=== PATIENT | female | born 1995 | race Caucasian/White ===

== ENCOUNTER → 2018-06-15 20:37 | Outpatient (CLI) | payer SELFPAY | PROVIDERS: Referring Provider Obstetrics & Gynecology; Visit Provider Obstetrics & Gynecology | DX: Z12.4 Encounter for screening for malignant neoplasm of cervix (principal) | CPT/HCPCS: 88175; G0145 ==

== ENCOUNTER → 2019-08-24 17:06 | Outpatient (CLI) | payer MEDICAID, SELFPAY ==
[2019-08-24 18:01] LABS: Absolute Lymphocyte Count 1.31 X10^3/uL (0.83-4.51); Absolute Neutrophil Count 8.4 X10^3/uL (2.0-7.7); Basophil# 0.04 X10^3/uL; Basophil% 0.4 % (0-1); Eosinophil# 0.05 X10^3/uL; Eosinophils% 0.5 % (0-5); Hematocrit 37.3 % (37-47); Hemoglobin 11.9 g/dL (12.0-15.0); Lymphocyte # 1.31 X10^3/ul (4.0); Lymphocyte % 12.4 % (19-41); Mean Corp Hgb Conc 31.9 g/dL (32-36); Mean Corpuscular Hgb 28.5 pg (27.0-32.0); Mean Corpuscular Volume 89.2 fL (81-99); Mean Platelet Vol. 8.9 fl (6.2-12.0); Monocyte# 0.74 X10^3/uL; NRBC Flagged by Analyzer 0 % (0-5); Neutrophil # 8.38 X10^3/uL (2.7-7.7); Platelet Count 422 K/mm3 (150-450); RBC Distribution Width CV 16.6 % (11.6-14.6); RBC Distribution Width SD 53.7 fl (35.1-43.9); Red Blood Count 4.18 M/mm3 (4.2-5.4); White Blood Count 10.6 K/mm3 (4.4-11.0)
[2019-08-24 18:11] LABS: Erythrocyte Sedimentation Rate 30 mm/hr (0-20)
[2019-08-24 18:42] LABS: AST(SGOT) 14 U/L (15-37); Alanine Aminotransfer ALT/SGPT 25 U/L (13-56); Albumin, Serum 3.6 g/dL (3.2-5.0); Alkaline Phosphatase 92 U/L (45-117); Bilirubin, Direct 0.11 mg/dL (0.00-0.30); Creatinine, Serum 0.83 mg/dL (0.55-1.02); EST Glomerular Filtration Rate 89 mL/min (>60); Est Glom Filt Rate - Afr Amer 108 mL/min (>60); Protein, Total 7.6 g/dL (6.4-8.2)
== END ==
PROVIDERS: Referring Provider Internal Medicine Rheumatology; Visit Provider Internal Medicine Rheumatology
DX: M05.9 Rheumatoid arthritis with rheumatoid factor, unspecified (principal); R79.82 Elevated C-reactive protein (CRP); Z79.899 Other long term (current) drug therapy
CPT/HCPCS: 36415; 80076; 82565; 85025; 85652; 86140

== ENCOUNTER 2019-09-07 13:30 | Emergency (ER) | payer MEDICAID, SELFPAY ==
[2019-09-07 13:31] VITALS: BP 153/107; PULSE 96; RESP 18; TEMP 37.3; O2SAT 97; BMI 27.4
--- NOTE | 2019-09-07 13:50 | EKG12_ITS ---
Test Reason : Blood Pressure : / mmHG Vent. Rate : 089 BPM Atrial Rate : 089 BPM P-R Int : 140 ms QRS Dur : 080 ms QT Int : 354 ms P-R-T Axes : 019 082 037 degrees QTc Int : 430 ms Normal sinus rhythm Normal ECG Confirmed by MARTHA TAN, KATHRYN ([id number]), editorial assistant ARIANNA SANDERS ([id number]) on 09/08/2019 2:25:38 PM Referred By: No Primary Care Physician Confirmed By:KATHRYN THOMAS MD
--- NOTE | 2019-09-07 13:54 | ECHOD_ITS ---
Reason For Study: PERICARDIAL EFFUSION Procedure This was a 2D Doppler, Color Flow transthoracic echocardiogram. Exam performed portable in ED. Left Ventricle Normal LV size. The estimated ejection fraction is 60 %. No evidence for diastolic dysfunction. No regional wall motion abnormalities noted. Right Ventricle Normal RV size. Normal systolic function. Atria Normal left atrium. Normal right atrium. Normal atrial septum. Mitral Valve There is no mitral valve stenosis. No mitral valve insufficiency. Tricuspid Valve There is no tricuspid stenosis. Trivial tricuspid valve insufficiency. Pulmonary artery systolic pressure is 20 mmHg. Aortic Valve Trisinus/trileaflet aortic valve. There is no aortic stenosis. No aortic valve insufficiency. Pulmonic Valve There is no pulmonic valvular stenosis. No pulmonic valve insufficiency. Great Vessels Normal aortic root. Pericardium/Pleural No pericardial effusion. MMode/2D Measurements & Calculations RVDd: 3.2 cm Ao root diam: 2.9 cm LAV(MOD-bp): 28.8 ml LAV(MOD-bp) Indexed: 15.5 ml/m2 LAV(MOD-sp2): 24.3 ml LAV(MOD-sp4): 33.4 ml LA dimension(2D): 3.5 cm LA A4 area: 13.9 cm2 RA A4 area: 12.3 cm2 Time Measurements MV dec time: 0.25 sec Doppler Measurements & Calculations MV E max gurwinder: 84.5 cm/sec Lat Peak E' Gurwinder: 20.5 cm/sec Med Peak E' Gurwinder: 10.1 cm/sec MV A max gurwinder: 54.7 cm/sec E/E' lat: 4.1 E/E' med: 8.3 MV E/A: 1.5 Ao V2 max: 124.4 cm/sec LV V1 max: 88.4 cm/sec PA V2 max: 87.5 cm/sec Ao max P.2 mmHg LV V1 max P.1 mmHg TR max gurwinder: 203.0 cm/sec TR max P.5 mmHg Interpretation Summary The estimated ejection fraction is 60 %. No evidence for diastolic dysfunction. Trivial tricuspid valve insufficiency. No pericardial effusion. Ordering Physician: Babar Sunshine Referring Physician: Care Physician, No Primary Performed By: Guerline Crane, TRUDY, RVT
--- NOTE | 2019-09-07 13:56 | RAD_ITS ---
STUDY: X-RAY CHEST REASON FOR EXAM: Female, 24 years old. CHEST PAIN, SOB TECHNIQUE: Single AP portable view of the chest. COMPARISON: None. FINDINGS: EKG electrodes are seen. The lungs are clear and expanded. There is no demonstrated pleural abnormality. Normal size heart. Normal mediastinum and gab. Normal visualized pulmonary arteries. Normal visualized aortic arch and descending thoracic aorta. Normal visualized thoracic spine. Normal visualized ribs, clavicles, and shoulders. There is no demonstrated abnormality of the visualized soft tissue structures of the upper abdomen. RAD/Chest 1 View (Portable) IMPRESSION: Normal x-ray examination of the chest. Electronically Signed: Owen Vargas, at 14:10 EST , Service support ,
--- NOTE | 2019-09-07 14:05 | ED.RN ---
NO OLD EKG
[2019-09-07 14:07] LABS: Erythrocyte Sedimentation Rate 19 mm/hr (0-20)
[2019-09-07 14:09] LABS: Absolute Lymphocyte Count 2.45 X10^3/uL (0.83-4.51); Absolute Neutrophil Count 6.2 X10^3/uL (2.0-7.7); Basophil# 0.06 X10^3/uL; Basophil% 0.6 % (0-1); Eosinophil# 0.11 X10^3/uL; Eosinophils% 1.2 % (0-5); Hematocrit 42.5 % (37-47); Hemoglobin 13.3 g/dL (12.0-15.0); Lymphocyte # 2.45 X10^3/ul (4.0); Lymphocyte % 25.8 % (19-41); Mean Corp Hgb Conc 31.3 g/dL (32-36); Mean Corpuscular Hgb 27.8 pg (27.0-32.0); Mean Corpuscular Volume 88.9 fL (81-99); Mean Platelet Vol. 8.9 fl (6.2-12.0); Monocyte# 0.66 X10^3/uL; Monocyte% 6.9 % (0-10); NRBC Flagged by Analyzer 0 % (0-5); Neutrophil # 6.15 X10^3/uL (2.7-7.7); Neutrophil % 64.8 % (47-70); Platelet Count 495 K/mm3 (150-450); RBC Distribution Width CV 15.8 % (11.6-14.6); RBC Distribution Width SD 51.6 fl (35.1-43.9); Red Blood Count 4.78 M/mm3 (4.2-5.4); White Blood Count 9.5 K/mm3 (4.4-11.0)
[2019-09-07] MEDS: 0.9% Normal Saline 1,000 ML 150 ML IV (14:12)
[2019-09-07 14:19] LABS: Anion Gap 5 (5-15); BUN 11 mg/dL (7-18); BUN/Creat Ratio 13.3 RATIO (10-20); Calcium,Total 9.5 mg/dL (8.5-10.1); Chloride 105 mmol/L (98-107); Creatinine, Serum 0.83 mg/dL (0.55-1.02); EST Glomerular Filtration Rate 89 mL/min (>60); Est Glom Filt Rate - Afr Amer 108 mL/min (>60); Glucose 94 mg/dL (74-106); Potassium 3.5 mmol/L (3.5-5.1); Sodium Level 138 mmol/L (136-145)
[2019-09-07 14:20] LABS: Internal QC Validated? YES +Cl - CLEAR BKGD; Pregnancy, Serum, hCG Quali. NEGATIVE Negative
[2019-09-07 15:14] LABS: D-Dimer Quantitative (DVT/PE) 4.03 FEU/ug/m (0.27-0.49)
--- NOTE | 2019-09-07 15:15 | CT_ITS ---
STUDY: CTA CHEST REASON FOR EXAM: Female, 24 years old. ELEVATED D-DIMER, CP, LEFT ARM NUMBNESS X MONTHS RADIATION DOSAGE (If Supplied By Facility): CTDIvol = ( 7.27 ) mGy, DLP = ( 295.08 ) mGycm TECHNIQUE: The examination was performed with the intravenous administration of IV 100mL Isovue-300. Post-processing of the angiographic images was performed, with multiplanar reformation and 3D reconstruction. Individualized dose optimization techniques were used for this CT. COMPARISON: Comparison is made with prior chest radiograph done earlier today. FINDINGS: Normal enhancement of the main pulmonary artery and right and left pulmonary arteries. Normal enhancement of the bilateral peripheral pulmonary arteries. There is no demonstrated pulmonary embolism. Normal thoracic aorta and visualized great vessels. There is no demonstrated aortic dissection. Normal heart and pericardium. Normal mediastinum. Normal hilar regions. Normal visualized trachea and bronchi. The lungs are well expanded. Normal pulmonary parenchyma. Normal pleura. Normal chest wall structures. Normal osseous structures. Small hiatal hernia. CT/CTA Chest W/WO Contrast IMPRESSION: Normal CTA chest examination, without a demonstrated pulmonary embolism or arterial dissection. Electronically Signed: Owen Vargas, at 15:49 EST , Service support ,
[2019-09-07 15:45] VITALS: BP 129/88; PULSE 76; RESP 17; O2SAT 98
--- NOTE | 2019-09-07 16:24 | ED.VISSUMM ---
- ER Visit Summary Date of Service: 09/07/19 Chief Complaint: Chest pain History of Present Illness: The patient is a 24 F who does not have a primary care physician. Her band manager is Dr. Hernandez. She reports that she was diagnosed with a pericardial effusion in June 2019 at [facility]. This did not require drainage. She states that she has symptoms that are similar to that that began yesterday. Patient complains of a dull left-sided chest pain that is 8 out of 10 at worst and 5-10 currently. It is worsened by laying flat and relieved by sitting up. She denies any associated nausea, vomiting, diaphoresis, shortness of breath. She is 2 months . Physical Examination: Vitals: Stable. Afebrile. General: Well-nourished and well-developed. Head: Normocephalic atraumatic. Neck: Supple, no lymphadenopathy. No JVD. Nontender. Cardiovascular: Regular rate and rhythm. No murmurs. Respiratory: No respiratory distress. Clear to auscultation bilaterally. Abdominal: Soft, nontender, nondistended, normal bowel sounds. No guarding, rebound, or peritoneal signs. Back: Nontender. Extremities: Nontender, no edema. Skin: Normal color, no rash. Neurologic: Alert and oriented ?3. Cranial nerves II through XII are intact. Normal strength and sensation. Psych: Normal affect. Test Results: EKG is sinus at 89 with no acute changes. She has normal voltage. There is no electrical alternans. Troponin is negative. D-dimer is elevated at 4.03. test is negative. Chem-7 is normal. CBC shows platelets of 495. Sed rate is normal. Echocardiogram shows an ejection fraction of 60% with no pericardial effusion. Clinical Impression(s) from Imaging Studies Chest X-Ray 09/07/19 13:56 IMPRESSION: Normal x-ray examination of the chest. Electronically Signed: Owen Vargas, at 14:10 EST , Service support , CTA of the chest shows no PE or dissection. Emergency Department Course and Treatment: Patient rested comfortably without complaint. She refused pain or nausea medications. Treatment Plan: Patient be discharged with symptomatic care. Instructed to follow-up with Dr. Giles in 3 to 5 days if not improving. Return to the emergency department for any worsening symptoms. Disposition: To home in improved and stable condition. Impression: 1. Chest pain, uncertain cause. This note was generated with [employer] dictation software. It may contain incorrect words, spelling, and punctuation that were not noted in review of the chart prior to signing ED Disposition - Plan for ED Patient: Instructions: CHEST PAIN, Uncertain Cause Referrals: Alex Giles, [STAFF PHYSICIAN] - 3-5 Days if not improving
== END 2019-09-07 17:00 | disposition home or self-care (01) ==
LOC: ED 13:54
PROVIDERS: Emergency Provider Emergency Medicine
DX: R07.9 Chest pain, unspecified (principal); M06.9 Rheumatoid arthritis, unspecified
CPT/HCPCS: 71045; 71275; 80048; 84484; 84703; 85025; 85379; 85652; 93005; 93306; 96360; 96361; 99284; J7030; Q9967; A4216

== ENCOUNTER 2020-02-08 10:26 | Outpatient (RCR) | payer SELFPAY ==
[2020-02-08 11:02] LABS: Erythrocyte Sedimentation Rate 17 mm/hr (0-20)
[2020-02-08 11:04] LABS: Absolute Lymphocyte Count 1.41 X10^3/uL (0.83-4.51); Absolute Neutrophil Count 5.3 X10^3/uL (2.0-7.7); Basophil# 0.04 X10^3/uL; Basophil% 0.5 % (0-1); Eosinophils% 1.3 % (0-5); Hematocrit 39.6 % (37-47); Lymphocyte # 1.41 X10^3/ul (4.0); Lymphocyte % 18.8 % (19-41); Mean Corp Hgb Conc 32.8 g/dL (32-36); Mean Corpuscular Hgb 29.7 pg (27.0-32.0); Mean Corpuscular Volume 90.6 fL (81-99); Mean Platelet Vol. 9.2 fl (6.2-12.0); Monocyte# 0.67 X10^3/uL; Monocyte% 8.9 % (0-10); NRBC Flagged by Analyzer 0 % (0-5); Neutrophil # 5.27 X10^3/uL (2.7-7.7); Neutrophil % 70.2 % (47-70); Platelet Count 415 K/mm3 (150-450); RBC Distribution Width CV 14.4 % (11.6-14.6); RBC Distribution Width SD 46.7 fl (35.1-43.9); Red Blood Count 4.37 M/mm3 (4.2-5.4); White Blood Count 7.5 K/mm3 (4.4-11.0)
[2020-02-08 11:29] LABS: AST(SGOT) 17 U/L (15-37); Alanine Aminotransfer ALT/SGPT 25 U/L (13-56); Albumin, Serum 4.3 g/dL (3.2-5.0); Alkaline Phosphatase 82 U/L (45-117); Bilirubin, Direct 0.16 mg/dL (0.00-0.30); CRP 7.07 mg/L (0.0-3.0); Creatinine, Serum 0.82 mg/dL (0.55-1.02); EST Glomerular Filtration Rate 90 mL/min (>60); Est Glom Filt Rate - Afr Amer 109 mL/min (>60); Globulin 3.7 g/dL (2.2-4.2)
== END 2020-02-08 18:00 | disposition home or self-care (01) ==
LOC: LAB 10:26
PROVIDERS: Referring Provider Internal Medicine Rheumatology; Visit Provider Internal Medicine Rheumatology
DX: M05.9 Rheumatoid arthritis with rheumatoid factor, unspecified (principal); Z79.899 Other long term (current) drug therapy
CPT/HCPCS: 36415; 80076; 82565; 85025; 85652; 86140

== ENCOUNTER → 2020-02-14 13:22 | Outpatient (CLI) | payer SELFPAY ==
[2020-02-14 13:32] LABS: Bacteria 0 SEEN /hpf (None Seen); Mucous, Urine 0 SEEN /hpf (<or=2+); Red Blood Cells-Urine 0 SEEN /hpf (0-5); White Blood Cells 0 SEEN /hpf (0-5)
[2020-02-14 14:23] LABS: Color, Urine Yellow (Yellow); Glucose, Dipstick Normal (Normal); Ketone-Dipstick Negative (Negative); Leukocyte Esterase-Dipstick Negative /ul (Negative); Nitrite-Dipstick Negative (Negative); Occult Blood-Urine Negative /ul (Negative); Protein-Dipstick Negative (Negative); Urine Bilirubin Dipstick Negative (Negative); Urine Clarity Sl. Cloudy (Clear); Urine Urobilinogen Normal (Normal)
[2020-02-14 14:28] LABS: Squamous Epithelial Cells - UA 0-5 SEEN /hpf (5-10)
[2020-02-14 14:37] LABS: BNP,B-Type NATRIURETIC PEPTIDE 16.1 pg/mL (0-100)
[2020-02-14 14:39] LABS: CRP 4.44 mg/L (0.0-3.0)
[2020-02-14 14:49] LABS: Erythrocyte Sedimentation Rate 30 mm/hr (0-20)
[2020-02-16 14:57] LABS: Complement C3 132 mg/dL (82-167)
[2020-02-17 14:07] LABS: RNP Ab <0.2 AI (0.0-0.9); Smith Ab <0.2 AI (0.0-0.9)
[2020-02-17 14:40] LABS: Anti-dsDNA Ab <1 IU/mL (0-9)
== END ==
PROVIDERS: Referring Provider Internal Medicine Rheumatology; Visit Provider Internal Medicine Rheumatology
DX: R76.0 Raised antibody titer (principal); I32 Pericarditis in diseases classified elsewhere; R79.89 Other specified abnormal findings of blood chemistry
CPT/HCPCS: 36415; 81001; 83880; 85652; 86140; 86160; 86225; 86235

== ENCOUNTER → 2020-08-29 12:59 | Outpatient (CLI) | payer OTHER, SELFPAY ==
[2020-08-29 14:48] LABS: Hepatitis B Surface Antibody Reactive; Hepatitis B Surface Antigen Non-Reactive (Nonreactive); Hepatitis C Antibody Non-Reactive (Nonreactive)
[2020-09-02 16:08] LABS: QNTFERON TB Mitogen Value > 10.00 IU/mL (.); QNTFERON TB Nil Value 0.08 IU/mL (.); QNTFERON TB1+ Ag Value 0.07 IU/mL (.); QNTFERON TB2+ Ag Value 0.06 IU/mL (.)
[2020-09-02 17:31] LABS: Hepatitis B Core Ab Total Negative (Negative); QNTIFERON TB Positive Criteria Negative (Negative)
== END ==
PROVIDERS: Referring Provider Internal Medicine Rheumatology; Visit Provider Internal Medicine Rheumatology
DX: Z11.59 Encounter for screening for other viral diseases (principal); Z79.899 Other long term (current) drug therapy
CPT/HCPCS: 36415; 86480; 86704; 86706; 86803; 87340

== ENCOUNTER 2020-10-23 11:05 | Outpatient (RCR) | payer OTHER, SELFPAY ==
[2020-10-23 11:44] LABS: Erythrocyte Sedimentation Rate 15 mm/hr (0-30)
[2020-10-23 11:49] LABS: Absolute Lymphocyte Count 1.84 X10^3/uL (0.83-4.51); Absolute Neutrophil Count 4.3 X10^3/uL (2.0-7.7); Basophil# 0.04 X10^3/uL; Basophil% 0.6 % (0-1); Eosinophil# 0.09 X10^3/uL; Eosinophils% 1.3 % (0-5); Hematocrit 41.5 % (37-47); Hemoglobin 13.7 g/dL (12.0-15.0); Lymphocyte # 1.84 X10^3/ul (4.0); Lymphocyte % 26.6 % (19-41); Mean Corpuscular Hgb 30.3 pg (27.0-32.0); Mean Corpuscular Volume 91.8 fL (81-99); Mean Platelet Vol. 9.4 fl (6.2-12.0); Monocyte# 0.58 X10^3/uL; Monocyte% 8.4 % (0-10); NRBC Flagged by Analyzer 0 % (0-5); Neutrophil # 4.34 X10^3/uL (2.7-7.7); Neutrophil % 62.7 % (47-70); Platelet Count 441 K/mm3 (150-450); RBC Distribution Width CV 13.7 % (11.6-14.6); RBC Distribution Width SD 46.2 fl (35.1-43.9); Red Blood Count 4.52 M/mm3 (4.2-5.4); White Blood Count 6.9 K/mm3 (4.4-11.0)
[2020-10-23 12:01] LABS: AST(SGOT) 12 U/L (15-37); Alanine Aminotransfer ALT/SGPT 24 U/L (13-56); Albumin, Serum 4.3 g/dL (3.2-5.0); Alkaline Phosphatase 87 U/L (45-117); Bilirubin, Direct 0.12 mg/dL (0.00-0.30); CRP 5.94 mg/L (0.0-3.0); EST Glomerular Filtration Rate 93 mL/min (>60); Est Glom Filt Rate - Afr Amer 112 mL/min (>60); Globulin 3.8 g/dL (2.2-4.2); Protein, Total 8.1 g/dL (6.4-8.2)
== END 2020-10-23 18:00 | disposition home or self-care (01) ==
LOC: LAB 11:05
PROVIDERS: Referring Provider Internal Medicine Rheumatology; Visit Provider Internal Medicine Rheumatology
DX: M05.9 Rheumatoid arthritis with rheumatoid factor, unspecified (principal); Z79.899 Other long term (current) drug therapy
CPT/HCPCS: 36415; 80076; 82565; 85025; 85652; 86140

== ENCOUNTER 2021-01-01 10:23 | Outpatient (RCR) | payer OTHER, SELFPAY ==
[2021-01-01 12:12] LABS: AST(SGOT) 11 U/L (15-37); Alanine Aminotransfer ALT/SGPT 24 U/L (13-56); Albumin, Serum 4.2 g/dL (3.2-5.0); Alkaline Phosphatase 79 U/L (45-117); Bilirubin, Direct 0.16 mg/dL (0.00-0.30); CRP < 2.90 mg/L (0.0-3.0); Creatinine, Serum 0.76 mg/dL (0.55-1.02); EST Glomerular Filtration Rate 98 mL/min (>60); Est Glom Filt Rate - Afr Amer 119 mL/min (>60); Globulin 3.5 g/dL (2.2-4.2); Protein, Total 7.7 g/dL (6.4-8.2)
[2021-01-01 12:16] LABS: Erythrocyte Sedimentation Rate 11 mm/hr (0-30)
[2021-01-01 12:21] LABS: Absolute Neutrophil Count 3.8 X10^3/uL (2.0-7.7); Basophil# 0.05 X10^3/uL; Basophil% 0.7 % (0-1); Eosinophils% 1.4 % (0-5); Hematocrit 40.2 % (37-47); Hemoglobin 13.4 g/dL (12.0-15.0); Lymphocyte % 33.8 % (19-41); Mean Corp Hgb Conc 33.3 g/dL (32-36); Mean Corpuscular Hgb 30.5 pg (27.0-32.0); Mean Corpuscular Volume 91.4 fL (81-99); Mean Platelet Vol. 9.7 fl (6.2-12.0); Monocyte# 0.72 X10^3/uL; Monocyte% 10.1 % (0-10); NRBC Flagged by Analyzer 0 % (0-5); Neutrophil # 3.81 X10^3/uL (2.7-7.7); Neutrophil % 53.7 % (47-70); Platelet Count 391 K/mm3 (150-450); RBC Distribution Width CV 13.9 % (11.6-14.6); RBC Distribution Width SD 46.3 fl (35.1-43.9); White Blood Count 7.1 K/mm3 (4.4-11.0)
== END 2021-01-01 18:00 | disposition home or self-care (01) ==
LOC: LAB 10:23
PROVIDERS: Referring Provider Internal Medicine Rheumatology; Visit Provider Internal Medicine Rheumatology
DX: M05.79 Rheumatoid arthritis with rheumatoid factor of multiple sites without organ or systems involvement (principal); Z79.899 Other long term (current) drug therapy
CPT/HCPCS: 36415; 80076; 82565; 85025; 85652; 86140

== ENCOUNTER → 2021-01-15 10:16 | Outpatient (CLI) | payer OTHER, SELFPAY ==
--- NOTE | 2021-01-15 10:54 | RAD_ITS ---
STUDY: X-RAY - CERVICAL SPINE REASON FOR EXAM: Female, 25 years old. RADICULOPATHY CERVICAL REGION TECHNIQUE: 5 view(s) of the cervical spine were obtained. COMPARISON: None FINDINGS: Normal anterior atlantoaxial articulation. Normal odontoid process. Normal cervical lordosis. Normal vertebral bodies and endplates. Normal disc space heights. Normal visualized intervertebral neuroforamina. The soft tissue structures are unremarkable. RAD/Cerv Spine Obl/Flex/Ext Comp IMPRESSION: Normal x-ray examination of the visualized cervical spine. Electronically Signed: Kym Lynch MD at 19:36 EDT Tel , Service support ,
--- NOTE | 2021-01-15 10:54 | RAD_ITS ---
STUDY: X-RAY - THORACIC SPINE REASON FOR EXAM: Female, 25 years old. DORSALGIA TECHNIQUE: 3 view(s) of the thoracic spine were obtained. COMPARISON: None. FINDINGS: Normal kyphosis of the thoracic spine. There is no substantial scoliosis. Normal thoracic vertebrae and endplates. Normal disc space heights. The soft tissue structures are unremarkable. RAD/Thoracic Spine 3 Views IMPRESSION: Normal x-ray examination of the thoracic spine. Electronically Signed: Kym Lynch MD at 19:37 EDT Tel , Service support ,
== END ==
LOC: RAD 10:18
PROVIDERS: Referring Provider Internal Medicine Rheumatology; Visit Provider Internal Medicine Rheumatology
DX: M54.9 Dorsalgia, unspecified (principal)
CPT/HCPCS: 72052; 72072

== ENCOUNTER 2021-04-22 12:41 | Outpatient (RCR) | payer OTHER, SELFPAY ==
[2021-04-22 13:55] LABS: Absolute Lymphocyte Count 3.12 X10^3/uL (0.83-4.51); Absolute Neutrophil Count 5.2 X10^3/uL (2.0-7.7); Basophil# 0.04 X10^3/uL; Basophil% 0.4 % (0-1); Eosinophil# 0.11 X10^3/uL; Eosinophils% 1.2 % (0-5); Hematocrit 39.8 % (37-47); Hemoglobin 13.5 g/dL (12.0-15.0); Lymphocyte # 3.12 X10^3/ul (0.83-4.51); Lymphocyte % 33.1 % (19-41); Mean Corp Hgb Conc 33.9 g/dL (32-36); Mean Corpuscular Hgb 31.1 pg (27.0-32.0); Mean Corpuscular Volume 91.7 fL (81-99); Mean Platelet Vol. 9.5 fl (6.2-12.0); Monocyte% 9.5 % (0-10); NRBC Flagged by Analyzer 0 % (0-5); Neutrophil # 5.23 X10^3/uL (2.7-7.7); Neutrophil % 55.4 % (47-70); Platelet Count 398 K/mm3 (150-450); RBC Distribution Width CV 13.1 % (11.6-14.6); RBC Distribution Width SD 43.4 fl (35.1-43.9); Red Blood Count 4.34 M/mm3 (4.2-5.4); White Blood Count 9.4 K/mm3 (4.4-11.0)
[2021-04-22 13:56] LABS: Erythrocyte Sedimentation Rate 9 mm/hr (0-30)
[2021-04-22 14:39] LABS: AST(SGOT) 17 U/L (15-37); Alanine Aminotransfer ALT/SGPT 37 U/L (13-56); Albumin, Serum 3.9 g/dL (3.2-5.0); Alkaline Phosphatase 81 U/L (45-117); Bilirubin, Direct 0.09 mg/dL (0.00-0.30); CRP < 2.90 mg/L (0.0-3.0); Creatinine, Serum 0.78 mg/dL (0.55-1.02); EST Glomerular Filtration Rate 94 mL/min (>60); Est Glom Filt Rate - Afr Amer 114 mL/min (>60); Globulin 4.1 g/dL (2.2-4.2)
== END 2021-04-22 18:00 | disposition home or self-care (01) ==
LOC: LAB 12:41
PROVIDERS: Referring Provider Internal Medicine Rheumatology; Visit Provider Internal Medicine Rheumatology
DX: M05.79 Rheumatoid arthritis with rheumatoid factor of multiple sites without organ or systems involvement (principal); Z79.899 Other long term (current) drug therapy
CPT/HCPCS: 36415; 80076; 82565; 85025; 85652; 86140

== ENCOUNTER 2021-06-24 12:31 | Outpatient (RCR) | payer OTHER, SELFPAY ==
[2021-05-15 20:26] VITALS: BMI 27.4
[2021-06-24 13:27] LABS: Erythrocyte Sedimentation Rate 14 mm/hr (0-30)
[2021-06-24 13:30] LABS: Absolute Lymphocyte Count 2.22 X10^3/uL (0.83-4.51); Absolute Neutrophil Count 4.2 X10^3/uL (2.0-7.7); Basophil# 0.06 X10^3/uL; Basophil% 0.8 % (0-1); Eosinophil# 0.12 X10^3/uL; Eosinophils% 1.6 % (0-5); Hematocrit 39.2 % (37-47); Hemoglobin 13.4 g/dL (12.0-15.0); Lymphocyte # 2.22 X10^3/ul (0.83-4.51); Lymphocyte % 30.5 % (19-41); Mean Corp Hgb Conc 34.2 g/dL (32-36); Mean Corpuscular Hgb 31.2 pg (27.0-32.0); Mean Corpuscular Volume 91.2 fL (81-99); Mean Platelet Vol. 9.7 fl (6.2-12.0); Monocyte% 9.6 % (0-10); NRBC Flagged by Analyzer 0 % (0-5); Neutrophil # 4.16 X10^3/uL (2.7-7.7); Neutrophil % 57.1 % (47-70); Platelet Count 406 K/mm3 (150-450); RBC Distribution Width CV 13.3 % (11.6-14.6); RBC Distribution Width SD 43.7 fl (35.1-43.9); White Blood Count 7.3 K/mm3 (4.4-11.0)
[2021-06-24 14:20] LABS: AST(SGOT) 19 U/L (15-37); Alanine Aminotransfer ALT/SGPT 28 U/L (13-56); Albumin, Serum 4.1 g/dL (3.2-5.0); Alkaline Phosphatase 77 U/L (45-117); Bilirubin, Direct 0.14 mg/dL (0.00-0.30); CRP < 2.90 mg/L (0.0-3.0); Creatinine, Serum 0.74 mg/dL (0.55-1.02); EST Glomerular Filtration Rate 100 mL/min (>60); Est Glom Filt Rate - Afr Amer 121 mL/min (>60); Globulin 3.6 g/dL (2.2-4.2); Protein, Total 7.7 g/dL (6.4-8.2)
== END 2021-07-15 18:00 | disposition home or self-care (01) ==
LOC: LAB 12:31
PROVIDERS: Referring Provider Internal Medicine Rheumatology; Visit Provider Internal Medicine Rheumatology
DX: M05.79 Rheumatoid arthritis with rheumatoid factor of multiple sites without organ or systems involvement (principal); Z79.899 Other long term (current) drug therapy
CPT/HCPCS: 36415; 80076; 82565; 85025; 85652; 86140

== ENCOUNTER 2021-10-21 15:29 | Outpatient (RCR) | payer OTHER, SELFPAY ==
[2021-07-16 02:22] VITALS: BMI 27.4
[2021-10-21 15:41] LABS: Mucous, Urine 0 SEEN /hpf (<or=2+); Red Blood Cells-Urine 0 SEEN /hpf (0-5)
[2021-10-21 16:27] LABS: Absolute Lymphocyte Count 3.46 X10^3/uL (0.83-4.51); Absolute Neutrophil Count 4.2 X10^3/uL (2.0-7.7); Basophil# 0.03 X10^3/uL; Basophil% 0.4 % (0-1); Eosinophil# 0.11 X10^3/uL; Eosinophils% 1.3 % (0-5); Hematocrit 42.2 % (37-47); Hemoglobin 14.4 g/dL (12.0-15.0); Lymphocyte # 3.46 X10^3/ul (0.83-4.51); Lymphocyte % 41.5 % (19-41); Mean Corp Hgb Conc 34.1 g/dL (32-36); Mean Corpuscular Hgb 31.5 pg (27.0-32.0); Mean Corpuscular Volume 92.3 fL (81-99); Mean Platelet Vol. 9.5 fl (6.2-12.0); Monocyte# 0.52 X10^3/uL; Monocyte% 6.2 % (0-10); NRBC Flagged by Analyzer 0 % (0-5); Neutrophil # 4.18 X10^3/uL (2.7-7.7); Neutrophil % 50.2 % (47-70); Platelet Count 401 K/mm3 (150-450); RBC Distribution Width CV 13.1 % (11.6-14.6); RBC Distribution Width SD 43.8 fl (35.1-43.9); Red Blood Count 4.57 M/mm3 (4.2-5.4); White Blood Count 8.3 K/mm3 (4.4-11.0)
[2021-10-21 16:32] LABS: Color, Urine Yellow (Yellow); Glucose, Dipstick Normal (Normal); Ketone-Dipstick 5 mg/dl (Negative); Leukocyte Esterase-Dipstick 100 /ul (Negative); Nitrite-Dipstick Negative (Negative); Occult Blood-Urine Negative /ul (Negative); Protein-Dipstick 15 mg/dl (Negative); Specific Gravity, Urine 1.025 (1.002-1.030); Urine Bilirubin Dipstick Negative (Negative); Urine Clarity Clear (Clear); Urine Urobilinogen Normal (Normal)
[2021-10-21 16:38] LABS: Erythrocyte Sedimentation Rate 9 mm/hr (0-30)
[2021-10-21 17:00] LABS: Squamous Epithelial Cells - UA 0-5 SEEN /hpf (5-10); White Blood Cells 0-5 SEEN /hpf (0-5)
[2021-10-21 17:02] LABS: Bacteria 1+ /hpf (None Seen)
[2021-10-21 17:23] LABS: AST(SGOT) 19 U/L (15-37); Alanine Aminotransfer ALT/SGPT 36 U/L (13-56); Albumin, Serum 4.4 g/dL (3.2-5.0); Alkaline Phosphatase 76 U/L (45-117); Bilirubin, Direct 0.11 mg/dL (0.00-0.30); CRP < 2.90 mg/L (0.0-3.0); Creatinine, Serum 0.86 mg/dL (0.55-1.02); EST Glomerular Filtration Rate 84 mL/min (>60); Est Glom Filt Rate - Afr Amer 101 mL/min (>60); Globulin 3.9 g/dL (2.2-4.2); Protein, Total 8.3 g/dL (6.4-8.2)
[2021-10-24 03:07] LABS: Dilute Prothrombin Time (dPT) 36.3 sec (0.0-47.6); Dilute Russell Viper Venom 34.6 sec (0.0-47.0); PTT-LA 29.4 sec (0.0-51.9); dPT Confirm Ratio 1.14 Ratio (0.00-1.34)
[2021-10-24 13:50] LABS: Anti-Cardiolipin Ab, IgG, Qn < 9 GPL U/mL (0-14); Anti-Cardiolipin Ab, IgM, Qn < 9 MPL U/mL (0-12); Beta-2-Glycoprotein I IgA <9 (0-25); Beta-2-Glycoprotein I IgG <9 (0-20); Beta-2-Glycoprotein I IgM <9 (0-32); Complement C3 128 mg/dL (82-167); Interpretation Comment: (.)
== END 2021-11-13 18:00 | disposition home or self-care (01) ==
LOC: LAB 15:29
PROVIDERS: Referring Provider Internal Medicine Rheumatology; Visit Provider Internal Medicine Rheumatology
DX: R79.82 Elevated C-reactive protein (CRP) (principal); Z79.899 Other long term (current) drug therapy
CPT/HCPCS: 36415; 80076; 81001; 82565; 85025; 85652; 86038; 86140; 86146; 86147; 86160; 86225; 86235

== ENCOUNTER → 2022-07-01 | Outpatient (CLI) | payer OTHER, SELFPAY ==
--- NOTE | 2022-07-01 12:23 | US_ITS ---
EXAM: US PELVIS TRANSVAGINAL CLINICAL INDICATION: Excessive bleeding in the premenopausal period TECHNIQUE: Transvaginal pelvic ultrasound was performed with grayscale and color Doppler imaging. Transvaginal imaging was used for better evaluation of the endometrium and adnexa. This report was created using [employer] report [employer] technology. COMPARISON: None. FINDINGS: UTERUS/CERVIX: Uterus: 7.5 x 5.0 x 4.6 cm. Endometrium: 8 mm. The uterus is retroverted. There is no uterine mass. RIGHT OVARY: 3.7 x 2.1 x 2.2 cm with multiple small peripheral follicles. Blood flow is present in the right ovary. LEFT OVARY: 2.9 x 1.8 x 2.2 cm, with multiple peripheral follicles. FREE FLUID: Small amount of free fluid in left adnexa. BLADDER: Empty bladder which cannot be evaluated with this probe. US/Transvaginal Non- IMPRESSION: 1. No acute abnormalities identified. No significant abnormalities identified involving the uterus. 2. Multiple peripheral follicles in the ovaries bilaterally, correlate for clinical symptoms of polycystic ovarian syndrome. Electronically Signed: Christopher Griffith MD at 1:26 EST ,
== END | disposition home or self-care (01) ==
LOC: US 12:21
PROVIDERS: Referring Provider Nurse Practitioner Women's Health; Visit Provider Nurse Practitioner Women's Health
DX: N92.4 Excessive bleeding in the premenopausal period (principal)
CPT/HCPCS: 76830

== ENCOUNTER → 2024-01-20 | Outpatient (CLI) | payer MEDICAID, SELFPAY ==
[2024-01-20 17:07] LABS: Absolute Neutrophil Count 3.6 X10^3/uL (2.0-7.7); Basophil# 0.04 X10^3/uL; Basophil% 0.7 % (0-1); Eosinophil# 0.06 X10^3/uL; Hematocrit 40.7 % (37-47); Hemoglobin 13.8 g/dL (12.0-15.0); Lymphocyte % 29.4 % (19-41); Mean Corp Hgb Conc 33.9 g/dL (32-36); Mean Corpuscular Hgb 30.3 pg (27.0-32.0); Mean Corpuscular Volume 89.5 fL (81-99); Mean Platelet Vol. 9.6 fl (6.2-12.0); Monocyte# 0.59 X10^3/uL; Monocyte% 9.6 % (0-10); NRBC Flagged by Analyzer 0 % (0-5); Neutrophil # 3.61 X10^3/uL (2.7-7.7); Platelet Count 356 K/mm3 (150-450); RBC Distribution Width CV 12.7 % (11.6-14.6); RBC Distribution Width SD 41.5 fl (35.1-43.9); Red Blood Count 4.55 M/mm3 (4.2-5.4); White Blood Count 6.1 K/mm3 (4.4-11.0)
[2024-01-20 17:17] LABS: Vitamin D,25 Hydroxy 26.6 ng/mL
[2024-01-20 17:23] LABS: Erythrocyte Sedimentation Rate 4 mm/hr (0-30)
[2024-01-20 17:36] LABS: ALB/GLOB Ratio 1.1 RATIO (0.9-2.4); AST(SGOT) 14 U/L (15-37); Alanine Aminotransfer ALT/SGPT 17 U/L (13-56); Albumin, Serum 4.2 g/dL (3.2-5.0); Alkaline Phosphatase 68 U/L (45-117); Anion Gap 7 (5-15); BUN 12 mg/dL (7-18); BUN/Creat Ratio 13.2 RATIO (10-20); CRP < 2.90 mg/L (0.0-3.0); Calcium,Total 8.9 mg/dL (8.5-10.1); Chloride 106 mmol/L (98-107); Creatinine, Serum 0.91 mg/dL (0.55-1.02); EST Glomerular Filtration Rate 78 mL/min (>60); Est Glom Filt Rate - Afr Amer 94 mL/min (>60); Globulin 3.7 g/dL (2.2-4.2); Glucose 101 mg/dL (74-106); Potassium 3.8 mmol/L (3.5-5.1); Protein, Total 7.9 g/dL (6.4-8.2); Sodium Level 137 mmol/L (136-145); Thyroid Stim Hormone (TSH) 1.33 uIU/mL (0.358-3.74)
== END | disposition home or self-care (01) ==
LOC: BIMLAB 16:10
PROVIDERS: PCP Internal Medicine; Referring Provider Internal Medicine; Visit Provider Internal Medicine
DX: R53.83 Other fatigue (principal); M06.9 Rheumatoid arthritis, unspecified
CPT/HCPCS: 36415; 80053; 82306; 84443; 85025; 85652; 86140

== ENCOUNTER → 2024-05-26 | Outpatient (CLI) | payer MEDICAID, SELFPAY ==
[2024-05-26 11:25] LABS: Hematocrit 38.5 % (37-47); Hemoglobin 13.3 g/dL (12.0-15.0); Mean Corp Hgb Conc 34.5 g/dL (32-36); Mean Corpuscular Hgb 31.1 pg (27.0-32.0); Mean Platelet Vol. 9.9 fl (6.2-12.0); Platelet Count 312 K/mm3 (150-450); RBC Distribution Width CV 12.4 % (11.6-14.6); RBC Distribution Width SD 40.1 fl (35.1-43.9); Red Blood Count 4.28 M/mm3 (4.2-5.4); White Blood Count 4.8 K/mm3 (4.4-11.0)
[2024-05-26 11:42] LABS: Erythrocyte Sedimentation Rate 1 mm/hr (0-30)
[2024-05-26 12:04] LABS: AST(SGOT) 14 U/L (15-37); Alanine Aminotransfer ALT/SGPT 16 U/L (13-56); CRP < 2.90 mg/L (0.0-3.0)
== END | disposition home or self-care (01) ==
LOC: LAB 10:46
PROVIDERS: PCP Internal Medicine
DX: M06.9 Rheumatoid arthritis, unspecified (principal); Z79.899 Other long term (current) drug therapy
CPT/HCPCS: 36415; 84450; 84460; 85027; 85652; 86140